=== PATIENT | female | born 1990 | race Caucasian/White ===

== ENCOUNTER 2016-11-03 12:59 | Outpatient (CLI) | payer OTHER ==
[2016-11-03] MEDS ORDERED: IOHEXOL 50 ML IV ONE (13:22)
== END 2016-11-03 20:53 | disposition home or self-care (01) ==
LOC: SRD 12:59
PROVIDERS: ATTEND Obstetrics & Gynecology
DX: N97.9 Female infertility, unspecified (principal)
CPT/HCPCS: 74740; C1751; Q9967

== ENCOUNTER 2017-08-10 00:01 | Inpatient (IN) | payer OTHER ==
[~2017-08-10] VITALS: Ht 162.6 cm; Wt 86.2 kg
[2017-08-10] MEDS ORDERED: OXYTOCIN/NORMAL SALINE 1,000 ML IV SCH ×2 (00:11→09:21)
[2017-08-10] MEDS ORDERED: MAGNESIUM SULFATE IN WATER 100 ML IV ONE (00:15)
[2017-08-10] MEDS ORDERED: NALBUPHINE HCL 10 MG/ML AMP IVP PRN (00:15)
[2017-08-10] MEDS ORDERED: TERBUTALINE SULFATE 1 MG/ML VIAL SUBCUT ONE (00:15)
[2017-08-10 00:53] LABS: BASOPHILS % (AUTO) 0.3 % (0.0-2.0); EOSINOPHILS # (AUTO) 0.3 K/uL (0.0-0.4); HEMATOCRIT 36.1 % (36-48); HEMOGLOBIN 12.2 g/dL (12.0-16.0); MEAN CORPUSCULAR HEMOGLOBIN 30 pg (27-31); MEAN CORPUSCULAR HGB CONC 34 % (32-36); MEAN CORPUSCULAR VOLUME 89 fL (79.0-98.0); MONOCYTES # (AUTO) 0.7 K/uL (0.0-1.0); MONOCYTES % (AUTO) 4.9 % (1.7-9.3); NEUTROPHILS # (AUTO) 10.4 K/uL (1.8-7.7); NEUTROPHILS % (AUTO) 71.8 % (40.0-70.0); PLATELET COUNT (AUTO) 255 K/uL (130-430); RED BLOOD CELL COUNT(AUTO) 4.07 MIL/uL (4.2-6.2); RED CELL DISTRIBUTION WIDTH 12.8 % (9.0-15.0); WHITE BLOOD COUNT (AUTO) 14.4 K/uL (4.8-10.8)
[2017-08-10 01:09] LABS: CALCIUM 9.4 mg/dL (8.4-11.0); CREATININE 0.6 mg/dL (0.55-1.30); POTASSIUM 3.6 mmol/L (3.5-5.1)
[2017-08-10 01:15] LABS: ALBUMIN 2.4 g/dL (3.4-4.8); TOTAL BILIRUBIN 0.1 mg/dL (0.0-1.0)
[2017-08-10] MEDS: MISOPROSTOL 100 MCG TABLET (CYTOTEC) PO PRN ×2 (01:38→05:35)
[2017-08-10] MEDS: LR 1,000 ML IV SCH (01:39)
[2017-08-10] MEDS: MAGNESIUM SULFATE IN WATER 500 ML IV PRN ×2 (02:34→22:37)
[2017-08-10 03:04] VITALS: BP_SYST 134
[2017-08-10] MEDS ORDERED: ACETAMINOPHEN 325 MG TABLET PO PRN (12:45)
[2017-08-10] MEDS ORDERED: fentaNYL CITRATE/PF 100 MCG/2 ML AMP ONE ×3 (16:27→22:33)
[2017-08-10] MEDS ORDERED: ROPIVACAINE 0.2% 100 ML ONE (16:28)
[2017-08-10] MEDS ORDERED: ROPIVACAINE 40 MG/20 ML AMP EP ONE (18:00)
[2017-08-10] MEDS ORDERED: LIGHT MINERAL OIL 10 ML VIAL MC ONE (19:00)
[2017-08-10] MEDS ORDERED: LIDOCAINE PF 1% 30ML(POUR BTL) INJ ONE (19:00)
[2017-08-10] MEDS ORDERED: LIDOCAINE PF 2%, 200 MG/10 ML AMPUL.LUER (EPIDURAL) INJ ONE (19:00)
[2017-08-10] MEDS ORDERED: FENT2mCg/mL-ROPIVA0.2%/NS EPID 150 ML EP ONE (22:35)
[2017-08-10] MEDS ORDERED: LR 500 ML IV ONE (23:22)
[2017-08-10] MEDS ORDERED: fentaNYL CITRATE/PF 100 MCG/2 ML AMP EP ONE (23:30)
[2017-08-10] MEDS ORDERED: FENT2mCg/mL-ROPIVA0.2%/NS EPID 150 ML EP SCH (23:30)
[2017-08-10] MEDS ORDERED: ePHEDrine sulfate 50 MG/ML VIAL IVP PRN (23:30)
[2017-08-11] MEDS ORDERED: fentaNYL CITRATE/PF 100 MCG/2 ML AMP ONE (05:37)
[2017-08-11] MEDS: LR 1,000 ML IV SCH (06:01)
[2017-08-11] MEDS ORDERED: OXYTOCIN/NORMAL SALINE 1,000 ML IV SCH (08:25)
[2017-08-11] MEDS ORDERED: OXYTOCIN/NORMAL SALINE 1,000 ML IV ONE (08:25)
[2017-08-11] MEDS ORDERED: ANUSOL 1 EA SUPP.RECT (PREPARATION H) RC PRN (08:30)
[2017-08-11] MEDS ORDERED: HYDROCORTISONE 0.5%, 28.35 GM TOPICAL CREAM TP PRN (08:30)
[2017-08-11] MEDS ORDERED: GLYCERIN/WITCH HAZEL (TUCKS PADS) TP PRN (08:30)
[2017-08-11] MEDS ORDERED: SENNOSIDES/DOCUSATE SODIUM 1 TAB TABLET(SENOKOT-S) PO PRN (08:30)
[2017-08-11] MEDS ORDERED: ACETAMINOPHEN 325 MG TABLET PO PRN (08:30)
[2017-08-11] MEDS ORDERED: RHO(D) IMMUNE GLOBULIN/MALTOSE 1500 UNITS/1.3 ML (WINHRO) IM PRN (08:30)
[2017-08-11] MEDS ORDERED: OXYCODONE/ACETAMINOPHEN 5-325 TABLET PO PRN ×2 (08:30)
[2017-08-11] MEDS ORDERED: DIPH-TET-PERTUS Vaccine 0.5 ML VIAL (ADACEL) I.M. PRN (08:30)
[2017-08-11] MEDS ORDERED: DERMOPLAST SPRAY TP PRN (08:30)
[2017-08-11] MEDS ORDERED: MEASLES,MUMPS&RUBELLA VACC/PF 12500 UNIT/0.5 ML VIAL SUBQ PRN (08:30)
[2017-08-11] MEDS ORDERED: LANOLIN 7 GM OINT. TP PRN (08:30)
[2017-08-11] MEDS: MAGNESIUM SULFATE IN WATER 500 ML IV PRN (08:49)
[2017-08-11] MEDS: IBUPROFEN 600 MG TABLET PO SCH ×2 (08:51→17:59)
[2017-08-11] MEDS: DOCUSATE SODIUM 100 MG CAPSULE PO PRN (15:21)
[2017-08-11] MEDS ORDERED: TEMAZEPAM 15 MG CAPSULE PO PRN (21:00)
[2017-08-12] MEDS: IBUPROFEN 600 MG TABLET PO SCH ×3 (00:23→11:39)
[2017-08-12] MEDS: DOCUSATE SODIUM 100 MG CAPSULE PO PRN (05:35)
[2017-08-12 07:39] LABS: HEMATOCRIT 32.7 % (36-48); HEMOGLOBIN 10.8 g/dL (12.0-16.0)
== END 2017-08-12 17:25 | disposition home or self-care (01) | DRG 775 ==
LOC: SPU 00:01
PROVIDERS: ADMIT Obstetrics & Gynecology; ATTEND Obstetrics & Gynecology
PROC: 10E0XZZ Delivery of Products of Conception, External Approach (ICD-10-PCS; principal; 2017-08-11)
PROC: 3E0R3BZ Introduction of Anesthetic Agent into Spinal Canal, Percutaneous Approach (ICD-10-PCS; 2017-08-11)
PROC: 00HU33Z Insertion of Infusion Device into Spinal Canal, Percutaneous Approach (ICD-10-PCS; 2017-08-11)
DX: O14.04 Mild to moderate pre-eclampsia, complicating childbirth (principal); O69.1XX0 Labor and delivery complicated by cord around neck, with compression, not applicable or unspecified; Z3A.37 37 weeks gestation of pregnancy; Z37.0 Single live birth
CPT/HCPCS: 36415; 80053; 81002-TC; 85018-TC; 85025; 86592; 86886; 86900; 86901; J2001; J2590; J2795; J3010; J3475; J7120